=== PATIENT | female | born 1945 | race Caucasian/White ===

== ENCOUNTER → 2017-06-30 | Outpatient (CLI) | payer BC ==
--- NOTE | 2017-06-30 11:12 | RAD ---
Examination: 3 views of the left shoulder History: History of pain in the left shoulder, fall. Comparison: None available Findings: The humerus head is within the glenoid. The acromioclavicular joint demonstrates mild degenerative changes. There is no acute fracture or dislocation identified. Surgical clips identified in the left axilla. Impression: No acute osseous findings. Mild degenerative changes left acromioclavicular joint.
--- NOTE | 2017-06-30 12:36 | RAD ---
2 views left hip 06/30/2017 2:00 AM Indication: Left hip pain following recent fall Comparison: None Findings: There is no fracture or dislocation identified. Articular surfaces are uninterrupted. Soft tissues are unremarkable. Impression: No evidence of acute osseous abnormality
== END | disposition home or self-care (01) ==
LOC: RAD 10:44
PROVIDERS: ATTEND Nurse Practitioner Family
DX: M19.012 Primary osteoarthritis, left shoulder (principal); M25.552 Pain in left hip; W19.XXXA Unspecified fall, initial encounter; Y93.9 Activity, unspecified; Y92.9 Unspecified place or not applicable; Y99.9 Unspecified external cause status
CPT/HCPCS: 73030; 73502